=== PATIENT | female | born 1935 | race Caucasian/White ===

== ENCOUNTER 2016-06-07 14:00 | Outpatient (RCR) ==
--- NOTE | 2016-05-26 16:15 | RS.OPPTEV2 ---
Date of Note: 05/26/16 Visit #: 1 Date of Evaluation: 05/26/16 Payer Source: MEDICARE Date of Onset/Injury/Change in Status: 04/19/16 Surgery Performed?: No Treatment Diagnosis: Lumbar radiculopathy, left sciatica History of Condition/Mechanism of Injury:: Patient reports pain began insidiously a few weeks ago after she had been working in the yard. She notes that she has had similar pain in the past treated successfully with physical therapy. Patient reports that she insisted her primary physician refer her to PT. Patient is now prescribed to begin physical therapy treatment. Prior Level of Function.....Patient was independent with: ADL's, Self Care, Caregiving, Ambulation/Mobility, Community Integration/Access Functional Limitations: Sleep, Bending, Ambulation, Community Access/Integration Current Subjective/complaints:: Right knee has been giving away too and it happened about the time of her back exacerbation. Treatment Side (optional): Left Medical History Medical History: Unremarkable Surgical History: Knee Replacement, Tonsillectomy, Other Surgical History Comments:: Tubual ligation. Smoking Status: Never smoker Hx Home Medications: Extra strength tylenol & Alieve PRN Pain Assessment - Pain Description Pain Location: Left lower lumbar and groin Current Pain Intensity: 1/10 Other Comments regarding Pain:: Pain is with walking, standng and getting up and down from seated position. Functional Outcome Measure Oswestry LBP: 14 (28% disability) - G Codes & Severity Modifier G Codes & Modifier: Mobility: Current - CJ. Goal - CI Source of G Code score: Oswestry LBP Scale Observation - Observation Inspection: Decreased WS to LLE when standing. Gait - Gait Pattern General Gait Pattern Observation: Antalgic Gait, Decrease Weight Bear (L), Decrease Weight Shift (L), Short Stance Time (L) General Muscle Strength: Left quad 4/5, left hip flexor 4-/5 - ROM Lumbar Flexion: Hand reach to ankles Sidebending to Left: Reach to Lateral Joint Line Sidebending to Right: Reach to Lateral Joint Line - Strength Trunk Rotation: 4+ Good + - Special Tests LANIE Test: Positive Left Palpation Palpation Findings: Tenderness (Left sciatic notch) Sensation - Sensation Sensation Description: Within Normal Limits Interventions - Exercise/Activities/Manual Therapy Exercises/Activities: na. Manual Therapy: na - Charges Total Direct Minutes: 45 Total Treatment Time: 45 Procedures billed for this date of service:: PT Uma (medium) Assessment Assessment: LBP with left sciatic pain, left groin pain with positive Lanie sign , decreased WB/WS to the LLE and antalgic gait. Difficulty changing positions. Patient Education: Education of diagnosis, Body/Joint mechanics, Activity Modification, Education of Plan of Care Rehab Potential: Good Short Term Goals Goal #1: Independent with basic HEP. Goal to be met by: 06/11/16 Goal #2: Patient tolerates standing with equal WB on the LEs Goal to be met by: 06/11/16 Goal #3: Sleep is undisturbed by pain. Goal to be met by: 06/11/16 [place] Goals Goal #1: Oswestry LBP Score 8 or less. Goal to be met by: 06/25/16 Goal #2: Patient is able to move LLE supine to/from sit w/o use of UEs Goal to be met by: 06/25/16 Goal #3: 5/5 left quad strength Goal to be met by: 06/25/16 Goal #4: Independent with DC HEP Goal to be met by: 06/25/16 Plan - Treatment to be Provided Procedures: Therapeutic Exercises, Therapeutic Activity, Manual Therapy, Patient Education Modalities: Electrical Stimulation, Ultrasound/Phonophoresis, Cryotherapy, Hot Packs - Treatment Plan Frequency: 3 X week Duration: 4 weeks ORDER # VISITS AND/OR THROUGH DATE: 06/25/2016 - Treatment Code (1) Low back pain Qualifiers: Chronicity: chronic Back pain laterality: bilateral Sciatica presence: with sciatica Sciatica laterality: sciatica of left side Qualified Description: Chronic bilateral low back pain with left-sided sciatica Qualifier Code(s): (M54.42) Lumbago with sciatica, left side, (G89.29) Other chronic pain
--- NOTE | 2016-05-28 09:31 | RS.OPPTDN ---
Subjective Date of Note: 05/28/16 Visit #: 2 Date of Evaluation: 05/26/16 Payer Source: MEDICARE Treatment Diagnosis: Lumbar radiculopathy, left sciatica Current Subjective/complaints:: Reports tingling in the L leg down to the knee today. Pain Assessment - Pain Description Pain Location: Left lower lumbar and groin Pain Description: Radiating Current Pain Intensity: 4/10 - Treatment Modality: Electrical Stim Unattended Parameters/Method Applied: 20 mins. to lumbar ,channel 1 @ 110pv,channel 2 @ 115pv. - Heat/Cryotherapy Treatment: Hot Pack (concurrent with e-stim) Interventions - Exercise/Activities/Manual Therapy Exercises/Activities: 25 mins. total of pelvic tilts,SKTC,90/90 hamstring stretches,piriformis stretches,L hip adductor stretches. Total minutes of Exercise: 25 Manual Therapy: na Total minutes of Manual Therapy: 0 HOME EXERCISE PROGRAM: Hamstring stretch, piriformis stretch, bridging, isometric hip ext on left, half bridging on left with isometric hip flexion on right. - Charges Total Direct Minutes: 25 Total Treatment Time: 45 Procedures billed for this date of service:: hp,e-stim,ex 2 Assessment: Patient has good extensibility for hamstring exercises,SKTC,but she does have L groin pain with atempting crossing the L LE past midline.She is tender to palpate the L hip adductor region today.She is very attentive and motivated to improve. Patient Education: Education of diagnosis, Body/Joint mechanics, Home Exercise Program, Home Safety, Activity Modification, Education of Plan of Care Patient demonstrates compliance with HEP?: Yes Short Term Goals Goal #1: Independent with basic HEP. Goal to be met by: 06/11/16 Progress towards Goal:: Progressing Goal #2: Patient tolerates standing with equal WB on the LEs Goal to be met by: 06/11/16 Goal #3: Sleep is undisturbed by pain. Goal to be met by: 06/11/16 [facility] Goals Goal #1: Oswestry LBP Score 8 or less. Goal to be met by: 06/25/16 Goal #2: Patient is able to move LLE supine to/from sit w/o use of UEs Goal to be met by: 06/25/16 Goal #3: 5/5 left quad strength Goal to be met by: 06/25/16 Goal #4: Independent with DC HEP Goal to be met by: 06/25/16 Plan PLAN OF CARE EXPIRES ON:: 06/25/16 ORDER # VISITS AND/OR THROUGH DATE: 06/25/2016 PLAN: Continue Plan of Care
--- NOTE | 2016-05-31 09:34 | RS.OPPTDN ---
Subjective Date of Note: 05/31/16 Visit #: 3 Date of Evaluation: 05/26/16 Payer Source: MEDICARE Treatment Diagnosis: Lumbar radiculopathy, left sciatica Current Subjective/complaints:: Patient reports she feels about the same,is noted to have slight antalgic gait entering the clinic today. Pain Assessment - Pain Description Pain Location: Left lower lumbar and groin Pain Description: Radiating, Sharp Pain Description: sharp in L groin Current Pain Intensity: 4/10 - Treatment Modality: Electrical Stim Unattended Parameters/Method Applied: 20 mins. high volt to lumbar area/L gluteals,channel 1 and 2 @ 110 pv . Patient Position: Supine - Heat/Cryotherapy Treatment: Hot Pack (concurrent with e-stim) Interventions - Exercise/Activities/Manual Therapy Exercises/Activities: 20 mins. total of pelvic tilts,,piriformis stretches,L hip adductor stretches.Added SI muscle energy of resisted hip flexion and resisted knee extension in hooklying today. Total minutes of Exercise: 20 Manual Therapy: na Total minutes of Manual Therapy: 0 HOME EXERCISE PROGRAM: Hamstring stretch, piriformis stretch, bridging, isometric hip ext on left, half bridging on left with isometric hip flexion on right. - Charges Total Direct Minutes: 20 Total Treatment Time: 40 Procedures billed for this date of service:: hp,e-stim,ex 1 Assessment: Patient continues to have sharp L groin pain when attempting L piriformis stretch,but it lessens after stretching the L hip adductors in supine.She tolerates all other exercises well.She is very pro-active regarding her health,attentive to HEP recommendations and pain control. Patient Education: Education of diagnosis, Body/Joint mechanics, Home Exercise Program, Home Safety, Activity Modification, Education of Plan of Care Patient demonstrates compliance with HEP?: Yes Short Term Goals Goal #1: Independent with basic HEP. Goal to be met by: 06/11/16 Progress towards Goal:: Progressing Goal #2: Patient tolerates standing with equal WB on the LEs Goal to be met by: 06/11/16 Progress towards Goal:: Progressing Goal #3: Sleep is undisturbed by pain. Goal to be met by: 06/11/16 [facility] Home Goals Goal #1: Oswestry LBP Score 8 or less. Goal to be met by: 06/25/16 Goal #2: Patient is able to move LLE supine to/from sit w/o use of UEs Goal to be met by: 06/25/16 Progress towards goal: Progressing Goal #3: 5/5 left quad strength Goal to be met by: 06/25/16 Goal #4: Independent with DC HEP Goal to be met by: 06/25/16 Plan PLAN OF CARE EXPIRES ON:: 06/25/16 ORDER # VISITS AND/OR THROUGH DATE: 06/25/2016 PLAN: Continue Plan of Care
--- NOTE | 2016-06-04 09:18 | RS.OPPTDN ---
Subjective Date of Note: 06/04/16 Visit #: 4 Date of Evaluation: 05/26/16 Payer Source: MEDICARE Treatment Diagnosis: Lumbar radiculopathy, left sciatica Current Subjective/complaints:: Reports walking alot the past couple of days, has pain even at rest ,and difficulty with sleeping. Pain Assessment - Pain Description Pain Location: Left lower lumbar and groin Pain Description: Radiating, Sharp, Aching Pain Description: sharp in L groin Current Pain Intensity: 6-7/10 - Heat/Cryotherapy Treatment: Hot Pack (20 mins. to L groin and low back) Interventions - Exercise/Activities/Manual Therapy Exercises/Activities: 25 mins. total of pelvic tilts,,piriformis stretches,L hip adductor stretches. SI muscle energy of resisted hip flexion and resisted knee extension in hooklying today.Passive L hip IR/ER (IR elicits pain.) Total minutes of Exercise: 25 Manual Therapy: na HOME EXERCISE PROGRAM: Hamstring stretch, piriformis stretch, bridging, isometric hip ext on left, half bridging on left with isometric hip flexion on right. - Charges Total Direct Minutes: 25 Total Treatment Time: 45 Procedures billed for this date of service:: hp,ex 2 Assessment: Patient reports the lumbar area feels better,but continues to have L groin pain.She plans to request L hip x-ray next week at Dr. stevenson.She continues to be highly motivated to improve. Patient Education: Education of diagnosis, Body/Joint mechanics, Home Exercise Program, Home Safety, Activity Modification, Education of Plan of Care Patient demonstrates compliance with HEP?: Yes Short Term Goals Goal #1: Independent with basic HEP. Goal to be met by: 06/11/16 Progress towards Goal:: Met Goal #2: Patient tolerates standing with equal WB on the LEs Goal to be met by: 06/11/16 Progress towards Goal:: Progressing Goal #3: Sleep is undisturbed by pain. Goal to be met by: 06/11/16 Progress towards Goal:: No Change Neurology Physician Assistant Goals Goal #1: Oswestry LBP Score 8 or less. Goal to be met by: 06/25/16 Goal #2: Patient is able to move LLE supine to/from sit w/o use of UEs Goal to be met by: 06/25/16 (uses UE's to lift L LE onto bed.) Progress towards goal: No Change Goal #3: 5/5 left quad strength Goal to be met by: 06/25/16 Progress towards goal: Progressing Goal #4: Independent with DC HEP Goal to be met by: 06/25/16 Progress towards goal: Progressing Plan PLAN OF CARE EXPIRES ON:: 06/25/16 ORDER # VISITS AND/OR THROUGH DATE: 06/25/2016 PLAN: Continue Plan of Care
--- NOTE | 2016-06-07 16:30 | RS.OPPTDN ---
Subjective Date of Note: 06/07/16 Visit #: 5 Date of Evaluation: 05/26/16 Payer Source: MEDICARE Treatment Diagnosis: Lumbar radiculopathy, left sciatica Current Subjective/complaints:: Reports her back and groin seems to be slowly getting better.She is taking ALEVE also to help relieve her pain. Pain Assessment - Pain Description Pain Location: Left lower lumbar and groin Pain Description: Radiating, Sharp, Aching Pain Description: sharp in L groin Current Pain Intensity: not rated - Treatment Modality: Electrical Stim Unattended Parameters/Method Applied: 20 mins. to lumbar,channel 1 and 2 @ 90pv. Patient Position: Supine - Heat/Cryotherapy Treatment: Hot Pack (concurrent with e-stim) Interventions - Exercise/Activities/Manual Therapy Exercises/Activities: 25 mins. total of pelvic tilts,,piriformis stretches,L hip adductor stretches. SI muscle energy of resisted hip flexion and resisted knee extension in hooklying today.Passive L hip IR/ER (IR elicits pain.) Total minutes of Exercise: 25 Manual Therapy: na Total minutes of Manual Therapy: 0 HOME EXERCISE PROGRAM: Hamstring stretch, piriformis stretch, bridging, isometric hip ext on left, half bridging on left with isometric hip flexion on right. - Charges Total Direct Minutes: 25 Total Treatment Time: 45 Procedures billed for this date of service:: hp,e-stim,ex 2 Assessment: Less tender to palpate the L hip adductors today,less antalgic gait today.She continues to have moderate tightness and discomfort in the L grion with figure 4 position. Patient Education: Education of diagnosis, Body/Joint mechanics, Home Exercise Program, Home Safety, Activity Modification, Education of Plan of Care Patient demonstrates compliance with HEP?: Yes Short Term Goals Goal #1: Independent with basic HEP. Goal to be met by: 06/11/16 Progress towards Goal:: Met Goal #2: Patient tolerates standing with equal WB on the LEs Goal to be met by: 06/11/16 Progress towards Goal:: Progressing Goal #3: Sleep is undisturbed by pain. Goal to be met by: 06/11/16 Progress towards Goal:: Progressing [facility] Goals Goal #1: Oswestry LBP Score 8 or less. Goal to be met by: 06/25/16 Goal #2: Patient is able to move LLE supine to/from sit w/o use of UEs Goal to be met by: 06/25/16 (uses UE's to lift L LE onto bed.) Progress towards goal: Progressing Goal #3: 5/5 left quad strength Goal to be met by: 06/25/16 Progress towards goal: Progressing Goal #4: Independent with DC HEP Goal to be met by: 06/25/16 Progress towards goal: Progressing Plan PLAN OF CARE EXPIRES ON:: 06/25/16 ORDER # VISITS AND/OR THROUGH DATE: 06/25/2016 PLAN: Continue Plan of Care
== END 2016-06-11 ==
PROVIDERS: ATTEND Internal Medicine
DX: M54.32 Sciatica, left side (principal)

== ENCOUNTER 2016-06-18 09:00 | Outpatient (RCR) ==
--- NOTE | 2016-06-16 09:43 | RS.OPPTDN ---
Subjective Date of Note: 06/16/16 Visit #: 6 Date of Evaluation: 05/26/16 Payer Source: MEDICARE Treatment Diagnosis: Lumbar radiculopathy, left sciatica Current Subjective/complaints:: Patient has returned to and reports they plan to address the L hip and R knee due to progressive arthritis. Pain Assessment - Pain Description Pain Location: Left lower lumbar and groin Pain Description: sharp in L groin Current Pain Intensity: 3-4/10 in back - Treatment Modality: Electrical Stim Unattended Parameters/Method Applied: 20 mins. high volt,channel 1 @ 125 pv,channel 2 @140 pv. Patient Position: Supine - Heat/Cryotherapy Treatment: Hot Pack (concurrent with e-stim to back and L upper thigh) Interventions - Exercise/Activities/Manual Therapy Exercises/Activities: 25 mins. of pelvic tilts,,piriformis stretches,L hip adductor stretches. SI muscle energy of resisted hip flexion and resisted knee extension in hooklying today.Ended session on elliptical x 10 mins. Total minutes of Exercise: 35 Manual Therapy: na Total minutes of Manual Therapy: 0 HOME EXERCISE PROGRAM: Hamstring stretch, piriformis stretch, bridging, isometric hip ext on left, half bridging on left with isometric hip flexion on right. - Charges Total Direct Minutes: 25 Total Treatment Time: 55 Procedures billed for this date of service:: hp,e-stim,ex 2 Assessment: Patient tolerates elliptical without increased pain .She reports the low back is improving,but the L hip and groin pain improvement is very slow and varies throughout the day.She is highly motivated to improve. Patient Education: Education of diagnosis, Body/Joint mechanics, Home Exercise Program, Home Safety, Activity Modification, Education of Plan of Care Patient demonstrates compliance with HEP?: Yes Short Term Goals Goal #1: Independent with basic HEP. Goal to be met by: 06/11/16 Progress towards Goal:: Met Goal #2: Patient tolerates standing with equal WB on the LEs Goal to be met by: 06/11/16 Progress towards Goal:: Partially Met Goal #3: Sleep is undisturbed by pain. Goal to be met by: 06/11/16 Progress towards Goal:: Progressing Manager Market Goals Goal #1: Oswestry LBP Score 8 or less. Goal to be met by: 06/25/16 Goal #2: Patient is able to move LLE supine to/from sit w/o use of UEs Goal to be met by: 06/25/16 (uses UE's to lift L LE onto bed,but less frequently ) Progress towards goal: Progressing Goal #3: 5/5 left quad strength Goal to be met by: 06/25/16 Progress towards goal: Progressing Goal #4: Independent with DC HEP Goal to be met by: 06/25/16 Progress towards goal: Progressing Plan PLAN OF CARE EXPIRES ON:: 06/25/16 ORDER # VISITS AND/OR THROUGH DATE: 06/25/2016 PLAN: Continue Plan of Care
--- NOTE | 2016-06-18 10:19 | RS.OPPTDN ---
Subjective Date of Note: 06/18/16 Visit #: 7 Date of Evaluation: 05/26/16 Payer Source: MEDICARE Treatment Diagnosis: Lumbar radiculopathy, left sciatica Current Subjective/complaints:: Patient reports her low back is better,but the L hip /groin pain is worse. Pain Assessment - Pain Description Pain Location: Left lower lumbar and groin Pain Description: sharp in L groin Current Pain Intensity: 0 in back,5/in L hip groin - Heat/Cryotherapy Treatment: Hot Pack (20 mins. to L hip ,L groin region) Interventions - Exercise/Activities/Manual Therapy Exercises/Activities: 25 mins. HEP review and return demo of pelvic tilts,, abdominal crunchespiriformis stretches,L hip adductor stretches,SKTC,DKTC.Ended session on elliptical x 10 mins. Total minutes of Exercise: 25 Manual Therapy: na Total minutes of Manual Therapy: 0 HOME EXERCISE PROGRAM: Hamstring stretch, piriformis stretch, bridging, isometric hip ext on left, half bridging on left with isometric hip flexion on right. - Charges Total Direct Minutes: 25 Total Treatment Time: 40 Procedures billed for this date of service:: hp,ex 2 Assessment: Patient agrees with D/C plan today,as her back pain has lessened.She has elevated pain in the L groin ,plans to see ortho. doctor for appt. regarding the L groin and hip pain. Patient Education: Education of diagnosis, Body/Joint mechanics, Home Exercise Program, Home Safety, Activity Modification, Education of Plan of Care Patient demonstrates compliance with HEP?: Yes Short Term Goals Goal #1: Independent with basic HEP. Goal to be met by: 06/11/16 Progress towards Goal:: Met Goal #2: Patient tolerates standing with equal WB on the LEs Goal to be met by: 06/11/16 Progress towards Goal:: Partially Met Goal #3: Sleep is undisturbed by pain. Goal to be met by: 06/11/16 Progress towards Goal:: No Change Group Home Goals Goal #1: Oswestry LBP Score 8 or less. Goal to be met by: 06/25/16 (17) Progress towards goal: Regressing Comments: 3 points change Goal #2: Patient is able to move LLE supine to/from sit w/o use of UEs Goal to be met by: 06/25/16 Progress towards goal: No Change Goal #3: 5/5 left quad strength Goal to be met by: 06/25/16 Progress towards goal: Progressing Goal #4: Independent with DC HEP Goal to be met by: 06/25/16 Progress towards goal: Partially Met Plan PLAN OF CARE EXPIRES ON:: 06/25/16 ORDER # VISITS AND/OR THROUGH DATE: 06/25/2016 PLAN: Plan for Discharge
--- NOTE | 2016-07-02 13:19 | RS.OPPTDC ---
Date of Discharge: 06/18/16 Date of Evaluation: 05/26/16 Number of Visits: 7 Treatment Diagnosis: Lumbar radiculopathy, left sciatica Current Complaints/Gains: Patient reports here back is better, but the left hip/ groin pain is worse. She still uses her UE's to lift the left LE in/out of bed or vehicle. Functional Outcome Measure Oswestry LBP: 34 - G Codes & Severity Modifier G Codes & Modifier: Mob D/C CJ. Mob goal CI Source of G Code score: Oswestry LBP scale Interventions - Exercise/Activities/Manual Therapy Exercises/Activities: NA Manual Therapy: na HOME EXERCISE PROGRAM: Hamstring stretch, piriformis stretch, bridging, isometric hip ext on left, half bridging on left with isometric hip flexion on right. - Charges Total Direct Minutes: NA Total Treatment Time: NA Procedures billed for this date of service:: NA Assessment Assessment: Patient with reports of less back pain, but worse left hip/groin pain. Patient agrees with therapy staff that she may have met her max. potential at this time. She feels some of the hip pain may be due to left hip OA. Short Term Goals Goal #1: Independent with basic HEP. Goal to be met by: 06/11/16 Progress towards Goal:: Met Goal #2: Patient tolerates standing with equal WB on the LEs Goal to be met by: 06/11/16 Progress towards Goal:: Partially Met Goal #3: Sleep is undisturbed by pain. Goal to be met by: 06/11/16 Progress towards Goal:: Not Met Director Orange Goals Goal #1: Oswestry LBP Score 8 or less. Goal to be met by: 06/25/16 (17) Progress towards goal: Not Met Goal #2: Patient is able to move LLE supine to/from sit w/o use of UEs Goal to be met by: 06/25/16 Progress towards goal: Not Met Goal #3: 5/5 left quad strength Goal to be met by: 06/25/16 Progress towards goal: Not Met Goal #4: Independent with DC HEP Goal to be met by: 06/25/16 Progress towards goal: Partially Met Plan Reason for Discharge:: Maximum Potential Met
== END 2016-06-28 09:50 | disposition home or self-care (01) ==
PROVIDERS: ATTEND Internal Medicine
DX: M54.32 Sciatica, left side (principal)

== ENCOUNTER 2016-06-28 09:10 | Outpatient (RCR) ==
--- NOTE | 2016-06-30 13:42 | RS.OPPTEV2 ---
Date of Note: 06/28/16 Visit #: 1 Date of Evaluation: 06/28/16 Payer Source: MEDICARE Date of Onset/Injury/Change in Status: 03/14/16 Surgery Performed?: No Treatment Diagnosis: Right knee pain, Right knee weakness/instability,OA of right knee joint History of Condition/Mechanism of Injury:: Patient reports OA in the right knee. States her pain and difficulty walking has progressively gotten worse. She expects to have a TKA within the next 12-18 months. Prior Level of Function.....Patient was independent with: ADL's, Self Care, Caregiving, Ambulation/Mobility, Community Integration/Access Functional Limitations: ADL's, Standing, Bending, Squatting, Ambulation, Community Access/Integration Current Subjective/complaints:: Patient reports right knee pain and weakness. States the knee "goes out of place" a few times a day. States when she first stands up on the knee it feels out of joint. States she does not use an assistive device. States she will just work on exercises at home. She is scheduled to have a left hip replacement in October and states she will then have the right knee replaced when she is healed enough from the hip surgery. Treatment Side (optional): Right Medical History Medical History: Unremarkable Surgical History: Knee Replacement (left TKA several years ago), Tonsillectomy, Other Surgical History Comments:: Tubual ligation. Smoking Status: Never smoker Hx Home Medications: Extra strength tylenol & Alieve PRN Pain Assessment - Pain Description Pain Location: right knee Pain Description: Sharp, Aching Current Pain Intensity: 3/10 Worst Pain Intensity: 7/10 Functional Outcome Measure LE Functional Scale: 35 (35/80=56.25% impairment) - G Codes & Severity Modifier G Codes & Modifier: Mobility current CK. Mobility goal CK. Mobility D/C CK Source of G Code score: LE functional scale Gait - Gait Pattern Gait Comments: Patient ambulates without an assistive device with slight decreased stance on the right LE. Upon initial standing, patient grimaces and has to sit back down, flex her knee, and then she can stand up and walk. - Left Knee ROM Left Knee Extension: full extension Left Knee Flexion: 125 (degrees AROM) - Right Knee ROM Right Knee Extension: -5 from full extension Right Knee Flexion: 125 (degrees AROM) Knee ROM Limitations: Soft Tissue Tightness, Pain - Left Knee Strength Left Knee Extension: 4+ Good + Left Knee Flexion: 4+ Good + - Right Knee Strength Right Knee Extension: 4 Good Right Knee Flexion: 4 Good Palpation Comments:: Patient reports no specific tenderness along the medial or lateral joint line or with compression to the patella. Sensation - Sensation Right Lower Extremity: Intact/Normal Left Lower Extremity: Intact/Normal Additional Comments: Additional Comments: Patient demonstrates slight increased joint mobility on the right knee compared to the left. Interventions - Exercise/Activities/Manual Therapy Exercises/Activities: Patient instructed in HEP of HS stretch, quad sets, HS sets, SAQ's, SLR's, hip abd/adduction, seated hip flexion, gluteal sets, and hip ER/IR. Manual Therapy: na HOME EXERCISE PROGRAM: HS stretch, quad sets, HS sets, SAQ's, SLR's, hip abd/ adduction, seated hip flexion, gluteal sets, and hip ER/IR. - Charges Total Direct Minutes: 35 mins Total Treatment Time: 35 mins Procedures billed for this date of service:: RADHA Rothman Assessment Assessment: Patient presents to therapy with a diagnosis of primary OA of the right knee. The patient explains that she will probably have a TKA towards the end of the year and she feels she can work on a HEP rather than attend regular visits for strengthening. She also requests exercises for the left hip, since she will be having a left ERIN in October. Rehab Potential: Good Shift Mechanic Goals Goal #1: Pt independent with HEP. Goal to be met by: 06/28/16 Progress towards goal: Met Plan - Treatment to be Provided Procedures: Therapeutic Exercises, Patient Education Modalities: No Modalities - Treatment Plan Frequency: one treatment HEP Duration: One time treatment ORDER # VISITS AND/OR THROUGH DATE: 06/28/16 - Treatment Code (1) Primary osteoarthritis Qualifiers: Osteoarthritis location: knee Laterality: right Qualified Description: Primary osteoarthritis of right knee Qualifier Code(s): ( M17.11) Unilateral primary osteoarthritis, right knee (2) Knee pain Qualifiers: Laterality: right Chronicity: chronic Qualified Description: Chronic pain of right knee Qualifier Code(s): (M25.561) Pain in right knee , (G89.29) Other chronic pain
--- NOTE | 2016-07-15 15:40 | RS.QUICKDC ---
Discharge from PT Date of Discharge: 06/28/16 Reason for Discharge: Patient attended evaluation and requested to perform exercises at home. No plan for patient to attend further visits at this time. Patient instructed in HEP for knee and hip.
== END 2016-07-11 ==
PROVIDERS: ATTEND Orthopaedic Surgery
DX: M54.32 Sciatica, left side (principal)